=== PATIENT | male | born 1970 | race Caucasian/White ===

== ENCOUNTER 2016-02-07 20:28 | Inpatient (IN) | payer OTHER ==
[2016-02-07] MEDS ORDERED: ALBUTEROL NEB INH ONE (20:35)
[2016-02-07] MEDS ORDERED: ROCEPHIN 1 GM/NS 50 ML IV ONE (20:35)
[2016-02-07] MEDS ORDERED: DUONEB (A & A) INH ONE (20:35)
[2016-02-07] MEDS ORDERED: SOLU-MEDROL IV ONE (20:36)
--- NOTE | 2016-02-07 20:39 | PROVIDER DOCUMENTATION ---
HPI-Respiratory General - General Chief Complaint: Shortness of Breath Stated Complaint: sob Time Seen by Provider: 02/07/16 20:34 Source: patient - History of Present Illness-Resp Nature of Presenting Problem: Pt is a 45 yom who presents to ER via EMS with CC of sob. Pt reports that he was recently discharged from [facility] and diagnosed with pneumonia. Pt is complaining of sob, post-nasal drip, and a dark green productive cough. Pt has hx of Alpha 1 antitrypsin deficiency. Quality of Pain: reports: tightness Severity in ED: reports: moderate Onset/Duration: reports: unsure Timing: reports: still present Cough Quality/Degree: reports: productive cough (dark green) Associated Symptoms: reports: cough, shortness of breath, short of breath. denies: wheezing Review of Systems - Adult - REVIEW OF SYSTEMS - ADULT Constitutional: denies: chills, fever, fatique Eyes: reports: no symptoms reported Ears, Nose, Mouth & Throat: reports: no symptoms reported Cardiovascular: reports: no symptoms reported Respiratory: reports: chronic cough, cough, excessive sputum production, shortness of breath. denies: dyspnea on exertion, hemoptysis, pleurisy, wheezing Gastrointestinal: reports: no symptoms reported Genitourinary: reports: no symptoms reported Musculoskeletal: reports: no symptoms reported Integumentary: reports: no symptoms reported Neurological: reports: no symptoms reported Psychiatric: reports: no symptoms reported Endocrine: reports: no symptoms reported Hematologic/Lymphatic: reports: no symptoms reported Allergic/Immunologic: reports: no symptoms reported All Other Systems: Reviewed and Negative Past History - Adult - PAST MEDICAL HISTORY-ADULT Review of Records: reports: Nursing Assessment Review, Medications Reviewed - IMMUNIZATION STATUS Childhood Immunizations: See Nurse Assessment Flu Vaccine: See Nurse Assessment Physical Exam-General - PHYSICAL EXAM-ADULT Initial Vital Signs Reviewed: Yes - CONSTITUTIONAL General Appearance: appears well, alert, no apparent distress - HEAD, EARS, NOSE, MOUTH & THROAT HENMT: normocephalic/atraumatic, moist mucous membranes - NECK Neck: non-tender, full range of motion, supple - RESPIRATORY Respiratory: decreased breath sounds (moderate), wheezing (bilateral moderate throughout) - CARDIOVASCULAR Cardiovascular: normal peripheral pulses, regular rate, rhythm - GASTROINTESTINAL (ABDOMEN) Abdominal Exam: normal bowel sounds, non tender, soft - LYMPHATIC Lymphatic: no adenopathy - MUSCULOSKELETAL Back Exam: no CVA tenderness, no vertebral tenderness Extremity: normal range of motion, non-tender, swelling (Lymphedema in R foot, but no pitting edema). negative: pedal edema - SKIN Integumentary: normal color, normal turgor, warm/dry - NEUROLOGIC Neurologic: grossly normal, no motor/sensory deficits - PSYCHIATRIC Psych/Mental Status: normal mood/affect, normal thought content, normal thought process, oriented x 3 Progress - PLAN OF CARE/RESULTS Progress/Plan/Lab Results: Vital Signs - 24 hr 02/07/16 02/07/16 21:02 21:32 Temperature 98.4 F Pulse Rate 124 H 118 H Respiratory 28 H 24 Rate Blood Pressure 141/79 O2 Sat by Pulse 92 L 97 Oximetry Orders Category Date Time Status CHEST-2 VIEWS [RAD] Stat Exams 02/07/16 20:35 Taken ABG [RESP] Routine Lab 02/07/16 21:15 Completed BNP [PRO B-NATRIURETIC PEPTIDE] Stat Lab 02/07/16 21:29 Received CBC WITH ELECTRONIC DIFF [HEME] Stat Lab 02/07/16 21:29 Completed CMP [COMPREHENSIVE METABOLIC PANEL] [CHEM] Stat Lab 02/07/16 21:29 Completed Albuterol 2.5MG/Ipratrop 0.5MG [Duoneb (A & A)] Med 02/07/16 20:35 Discontinued 3 ml INH NOW ONE Albuterol [Albuterol Neb] Med 02/07/16 20:35 Discontinued 5 mg INH NOW ONE CefTRIAXONE 1 GM/NS [Rocephin 1 gm/Ns] 50 ml Med 02/07/16 20:35 Discontinued IV NOW Methylprednisolone Sod Succ [Solu-Medrol] Med 02/07/16 20:36 Discontinued 125 mg IV NOW ONE Aerosol Treatments Routine Oth 02/07/16 20:35 Completed Aerosol Treatments Stat Oth 02/07/16 20:35 Completed Laboratory Tests 02/07/16 02/07/16 02/07/16 21:15 21:29 21:29 WBC 9.13 RBC 4.49 L Hgb 12.8 L Hct 40.8 L MCV 90.9 MCH 28.5 MCHC 31.4 L RDW Std Deviation 15.9 H Plt Count 202 MPV 10.3 Immature Gran % (Auto) 0.3 Neut % (Auto) 74.7 Lymph % (Auto) 9.1 L Hoke % (Auto) 15.4 H Eos % (Auto) 0.1 Baso % (Auto) 0.4 Immature Gran # (Auto) 0.03 Neut # 6.81 H Lymph # 0.83 L Hoke # 1.41 H Eos # 0.01 Baso # 0.04 Specimen Type ARTERIAL Sample Site R RADIAL pH 7.37 pCO2 59 H* pO2 84 HCO3 30.3 H Base Excess 7.0 H Oxyhemoglobin 94.6 L ABG O2 Sat (Calculated) 17.1 ABG O2 Saturation 98.9 ABG Carboxyhemoglobin 3.20 H ABG Methemoglobin 1.1 Nikita Test YES A-a O2 Difference 99.0 Total Hemoglobin 12.8 Lactate 0.50 Liter Flow 4.0 Blood Gas Modality CANNULA FiO2 % 36.0 Sodium 143 Potassium 4.1 Chloride 102 Carbon Dioxide 31 Anion Gap 10 BUN 11 Creatinine 0.6 L Estimated GFR/1.73 m2 > 60 BUN/Creatinine Ratio 18 Glucose 112 H Calculated Osmolality 285 Calcium 8.3 L Total Bilirubin 0.21 AST 13 ALT 10 Alkaline Phosphatase 48 Total Protein 6.0 L Albumin 3.3 L Globulin 2.7 Albumin/Globulin Ratio 1.2 - REASSESSMENT Reassessment #1 Time Reassessed: 21:56 Status: improving (Pt reports feeling a little better, but not completely back to baseline. Pt was still tachycardic and had accesory lung muscle use, but has normal lung sounds. Dr. Chavarria discussed decision to admit pt, and pt is aware and okay with Dr. Chavarria's decision.) - EKG 1 Time of EKG reading by physician:: 21:04 EKG Read and Signed by:: Shade Chavarria EKG Interpretation (*Must complete 3 of following elements*): Abnormal (R superior axis deviation; Possible R ventricular hypertrophy per Dr. Chavarria) Rate: 123 Rhythm: Sinus tachycardia - XRAY 1 XRAY: Bilateral XRAY Study: Chest Impression: See EMR Report XRAY Interpretation: Diffuse pulmonary fibrosis, no obvious infiltrates per Dr. Chavarria - CONSULTS/PCP/HOSPITALIST Notification #1 *Consult/PCP/Hospitalist*: Dr. Larson Time Discussed: 22:38 Consult Disposition: Will see in ED, Admit Departure - Departure Time of Disposition Order: 22:37 DIAGNOSIS: COPD exacerbation, [id number] deficiency Disposition: ADMITTED INPATIENT 09 Certified Medical Emergency: Emergent Condition: Stable Attestation - Scribe Verification/Attestation Scribe:: Landon Ellison Acting as Scribe for:: Shade Chavarria Scribe documention review:: This chart was documented by a scribe and accurately reflects the service the provider performed and the decisions made by the provider.
[2016-02-07 21:27] LABS: ALLEN TEST YES; BLOOD TYPE ARTERIAL; DRAW SITE R RADIAL; METHB 1.1 % (0.0-1.5); O2(CT) 17.1 mL/dL (15.0-23.0); PO2(98.6) 84 mmHg (60-100); SAMPLE BLOOD; SAO2 98.9 % (95.0-100.0); THB 12.8 g/dL (11.5-17.4); pH(98.6) 7.37 (7.35-7.45)
[2016-02-07 21:28] LABS: MODALITY CANNULA
[2016-02-07 21:30] LABS: PCO2(98.6) 59 mmHg (35-45)
[2016-02-07 21:38] LABS: MANUAL DIFF NEEDED? NO
[2016-02-07 21:44] LABS: BASO% 0.4 % (0.0-0.8); EOS# 0.01 X1000 (0.0-0.7); EOS% 0.1 % (0.0-10.0); HEMATOCRIT 40.8 % (42.0-52.0); HEMOGLOBIN 12.8 g/dL (14.0-18.0); IMM GRAN# 0.03 X1000 (0.0-0.04); IMM GRAN% 0.3 % (0.0-0.5); LYMPH# 0.83 X1000 (1.2-3.4); LYMPH% 9.1 % (20.5-51.1); MCH 28.5 PG (27-31); MCHC 31.4 g/dL (33-37); MCV 90.9 FL (81-99); MONO# 1.41 X1000 (0.11-0.59); MONO% 15.4 % (1.7-9.3); MPV 10.3 FL (7.4-10.4); NEUT% 74.7 % (42.2-75.2); PLT 202 X1000 (130-400); RBC 4.49 XMIL (4.7-6.1)
[2016-02-07 22:15] LABS: AGAP 10; ALBUMIN 3.3 g/dL (3.5-5.0); ALKALINE PHOSPHATASE 48 U/L (32-122); BUN 11 mg/dL (8-22); CALCIUM 8.3 mg/dL (8.8-10.2); CHLORIDE 102 mmol/L (98-107); COSMO 285; GOT 13 U/L (10-34); GPT 10 U/L (10-44); POTASSIUM 4.1 mmol/L (3.5-5.1); SODIUM 143 mmol/L (136-145); TCO2 31 mmol/L (25-35); TOTAL BILIRUBIN 0.21 mg/dL (0.20-1.00)
[2016-02-07] MEDS ORDERED: ALBUTEROL NEB INH PRN (23:27)
[2016-02-07] MEDS ORDERED: ZOFRAN IV PRN (23:28)
[2016-02-07] MEDS ORDERED: TYLENOL PO PRN (23:28)
[2016-02-07] MEDS ORDERED: NS 1,000 ML IV SCH (23:30)
[2016-02-07] MEDS ORDERED: LOVENOX SUBQ SCH (23:30)
[2016-02-08] MEDS ORDERED: ZOFRAN IV PRN (00:59)
[2016-02-08] MEDS ORDERED: NS 1,000 ML IV SCH (01:00)
[2016-02-08] MEDS: ALBUTEROL NEB INH PRN ×3 (02:30→12:01)
[2016-02-08] MEDS ORDERED: PNEUMOVAX 23 IM ONE (04:00)
[2016-02-08 06:09] LABS: BE 6.1 mmoll (-3.0-3.0); BLOOD TYPE ARTERIAL; DRAW SITE R RADIAL; METHB 1.2 % (0.0-1.5); O2(CT) 17.2 mL/dL (15.0-23.0); PO2(98.6) 59 mmHg (60-100); SAMPLE BLOOD; SAO2 91.9 % (95.0-100.0); THB 13.9 g/dL (11.5-17.4); pH(98.6) 7.33 (7.35-7.45)
[2016-02-08 06:14] LABS: MODALITY CANNULA; PCO2(98.6) 65 mmHg (35-45)
[2016-02-08 06:15] LABS: ALLEN TEST YES
[2016-02-08] MEDS: LOVENOX SUBQ SCH (06:31)
--- NOTE | 2016-02-08 07:24 | HISTORY AND PHYSICAL ---
CHIEF COMPLAINT: Shortness of breath. HISTORY OF PRESENT ILLNESS: A 45-year-old white male with alpha 1 antitrypsin deficiency that was just discharged from [facility] with pneumonia and sent home on Levaquin by mouth. He presented to the ER with complaints of shortness of breath, postnasal drip and nonproductive cough with greenish sputum. The patient is also a poor historian has been evaluated by Dr Ericka KENNEDY. Chest x-ray seems to show chronic fibrotic scar tissue compatible with alpha 1 antitrypsin or severe COPD. In any case, he was noted to be desaturating. He was treated aggressively with breathing treatments, IV antibiotics and steroids. Now, his condition seems to be improved greatly. He is on oxygen by nasal cannula. Denies any distress or complaints. As I said again, the patient is a poor historian. He reports he might have impaired cognitive cognition. REVIEW OF SYSTEMS: Denies fevers. Denies chills. Denies fatigue. No coryza, positive for rhinorrhea. Positive for sore throat. No chest pain. No worsening distal edema. No palpitations. No tachycardia. No syncope. Positive for chronic cough. Positive for sputum production and shortness of breath. No hemoptysis. No pleurisy. No wheezing.Gastrointestinal: No nausea, vomiting, or diarrhea. Genitourinary: No hesitancy. No frequency. Musculoskeletal: No back pain. No joint pain. Integumentary: He has right foot and leg distal edema and varicosities that seem to be chronic. He says it causes no pain. Neurologic: Awake, alert and oriented x3. Endocrine: No diabetes. No skin thickening or discoloration. No cold intolerance. Hematologic and Lymphatic: He has isolated right lower extremity vascular insufficiency and edema, large and chronic Allergic/Immunologic: No new allergies or reactions to anything though however admits to recurrent infections. Other systems reviewed and negative. PAST MEDICAL HISTORY: Significant for alpha 1 antitrypsin deficiency. FAMILY HISTORY: Hypertension. SOCIAL HISTORY: No alcohol. No tobacco. No drugs. PAST SURGICAL HISTORY: He does have a port on the left side. PHYSICAL EXAMINATION: GENERAL: A chronically ill white male adult in no distress. VITAL SIGNS: Temperature is 98.4 degrees, pulse 118, respiratory rate 28, blood pressure 141/79, saturating 92% on oxygen by nasal cannula. HEENT: Head is atraumatic, normocephalic. Pupils reactive to light. Nose and throat clear. NECK: Supple. No JVD. LUNGS: Poor air movement. Scattered rhonchi. Prolonged expiratory phase. Tachypnea. HEART: S1-S2 present. Regular rate and rhythm. Tachycardic. ABDOMEN: Soft, nontender and nondistended. EXTREMITIES: No edema. No calf tenderness. NEUROLOGIC: Awake, alert and oriented x3. Cranial nerves 2-12 intact. Clear speech. Muscle strength 5/5 in 4 limbs. EXTREMITIES: Right leg edema and varicosities. PSYCHIATRIC: Proper. LABORATORY: White blood cell count 9.13 with a hemoglobin 12.8, hematocrit 40.8 , platelets of 202,000. Sodium 143, potassium 4.1, chloride 102, carbon dioxide 31, anion gap 10, BUN 11, creatinine 0.6. Glucose 112, calcium 8.3, total bilirubin 0.21. AST 13. ALT 10, alkaline phosphatase 48, total protein 6. Albumin 3.3, globulin 2.7, albumin globulin ratio of 1.2. IMPRESSION AND PLAN: 1. Acute exacerbation of COPD versus persisting pneumonia. 2. Alpha 1 antitrypsin deficiency with hypoxemia. 3. Mild respiratory distress on admit. DISCUSSION: The patient with poor pulmonary status and recent diagnosis of the pneumonia and discharge home on Levaquin, per report, has not finished yet Levaquin course. He is now in ER and was initially found with respiratory distress though mild. Hypoxemia was very symptomatic and very aggressively has responded to treatment. For now, we will admit to inpatient. We will continue with high-dose IV steroids, broad-spectrum IV antibiotics, breathing treatments over the our and as needed. Telemetry, serial exams and serial neuro checks. Consult to pulmonology oncology navigator. Patient might be transferred to [facility] secondary to bed availability. Heparin for DVT prophylaxis and rest of plan of care as per clinical development. [facility]
[2016-02-08] MEDS ORDERED: SOLU-MEDROL IV SCH (08:00)
[2016-02-08] MEDS: SPIRIVA INH SCH (08:54)
[2016-02-08] MEDS: SYMBICORT 160/4.5 MICROGM INHALER INH SCH ×2 (08:55→19:35)
[2016-02-08] MEDS ORDERED: LEVAQUIN PO SCH (09:00)
[2016-02-08] MEDS ORDERED: SINGULAIR PO SCH (09:00)
[2016-02-08] MEDS ORDERED: LASIX PO SCH (09:00)
[2016-02-08] MEDS ORDERED: DESYREL PO SCH (09:00)
[2016-02-08] MEDS: SINGULAIR PO SCH (09:32)
[2016-02-08] MEDS: LASIX PO SCH (09:33)
[2016-02-08] MEDS: LEVAQUIN PO SCH (09:33)
[2016-02-08] MEDS: FLONASE NAS SCH ×2 (09:34→22:29)
--- NOTE | 2016-02-08 09:39 | Diag Imaging Result Document ---
PROCEDURE NAME: CHEST-2 VIEWS - 02/07/2016 2 VIEWS OF THE CHEST: FINDINGS: There is prominence of the pulmonary vascularity. There is a Port-A-Cath on the left. The heart size is not enlarged. There is generally increased interstitial markings. IMPRESSION: Possible interstitial pulmonary edema. Advise comparison with previous studies if available.
[2016-02-08] MEDS: COENZYME Q10 PO SCH (09:59)
--- NOTE | 2016-02-08 10:05 | EKG Report ---
Test Performed on : 02/07/2016 9:04:41 PM Test Reason : ED. NOt ordered in [place] Blood Pressure : / mmHG Vent. Rate : 123 BPM Atrial Rate : 123 BPM P-R Int : 134 ms QRS Dur : 082 ms QT Int : 318 ms P-R-T Axes : 076 266 063 degrees QTc Int : 455 ms Sinus tachycardia. Right superior axis deviation Possible Right ventricular hypertrophy Abnormal ECG No previous ECGs available Unconfirmed Result
--- NOTE | 2016-02-08 10:35 | EKG Report ---
Test Performed on : 02/08/2016 10:12:12 AM Test Reason : Blood Pressure : / mmHG Vent. Rate : 115 BPM Atrial Rate : 115 BPM P-R Int : 128 ms QRS Dur : 080 ms QT Int : 336 ms P-R-T Axes : 071 264 069 degrees QTc Int : 464 ms Sinus tachycardia. Right superior axis deviation Inferior infarct , age undetermined T wave abnormality, consider anterior ischemia Abnormal ECG When compared with ECG of 07-FEB-2016 21:04, (Unconfirmed) T wave inversion now evident in Anterior leads Unconfirmed Result
[2016-02-08] MEDS: DUONEB (A & A) INH SCH ×3 (15:10→22:55)
[2016-02-08] MEDS ORDERED: LASIX IV ONE (16:03)
[2016-02-08] MEDS: SOLU-MEDROL IV SCH (16:25)
--- NOTE | 2016-02-08 17:04 | PROGRESS NOTE ---
DATE: 02/08/2016 SUBJECTIVE: Patient has no focal complaints. He is minimalist as far as sharing any major complaints. OBJECTIVE: Vital signs: Blood pressure 131/79, heart rate of 118, respiratory rate 20, temperature 97.6 degrees, 91% on 2 L. Cardiovascular: Regular rate and rhythm. Pulmonary: Bilateral breath sounds. Diminished at bases. Positive end-expiratory wheezes. GI: Soft, nontender, nondistended. Bowel sounds are positive. LAB: No new lab data today except for blood gas pH 7.33, pCO2 65, PaO2 59. PROBLEM LIST: 1. Chronic obstructive pulmonary disease exacerbation in the setting of alpha 1 antitrypsin deficiency. We will continue breathing treatments. Somehow he is only on albuterol probably do duo nebs on him, also to aid with secretions. Continue steroids. He is on antibiotics. Pulmonary has evaluated the patient are following. Plan to repeat his x-ray tomorrow. 2. Pulmonary edema. We will give him a little bit of diuresis. BNP is really only milled minimally elevated. I do not think this is an acute cardiac process. We will continue to monitor. 3. Acute respiratory failure with hypoxemia. Secondary to above issues we will wean O2 as tolerated.
--- NOTE | 2016-02-08 21:08 | CONSULTATION ---
DATE OF CONSULTATION: 02/08/2016 ATTENDING PHYSICIAN: Favian Jorgensen MD REASON FOR CONSULTATION: Chronic obstructive pulmonary disease exacerbation or emphysema, undecided. CHIEF COMPLAINT: Mr. Tucker is a 45-year-old male with history of alpha 1 antitrypsin deficiency who was came to the emergency room with history of worsening shortness of breath , cough and associated with greenish sputum. Patient was apparently treated for pneumonia and discharged from [facility] a few days ago. He was on Levaquin. However , patient respiratory status worsened and he came to the emergency room. Chest x-ray showed some fibrotic changes and emphysematous changes. Due to significant respiratory distress, patient was admitted for acute exacerbation of COPD. Unable to obtain an extensive history since patient is a poor historian, possible secondary to cognitive impairment. REVIEW OF SYSTEMS: General: Negative for fever or chills. GI: No nausea, no vomiting. : No urinary complaints. MEDICAL INSURANCE CLAIMS SPECIALIST: No confusion. PAST MEDICAL HISTORY: Alpha 1 antitrypsin. FAMILY HISTORY: Hypertension. SOCIAL HISTORY: Denies any alcohol tobacco or drug use. SURGICAL HISTORY: Has a port on the left side. PRIMARY STONEWORKING SANDER: Tomas oFx MD Patient was diagnosed with alpha 1 antitrypsin deficiency a few months ago. He is currently not on any Prolastin . PHYSICAL EXAMINATION: General: White male in mild respiratory distress. Vitals: Temperature is 98.4 degrees, pulse rate 115, oxygen saturation 92-94% on oxygen. Head and neck: Normocephalic, atraumatic. Lungs: Decreased air entry bilaterally with rhonchi. Abdomen: Soft. Extremities: No edema. MEDICAL INSURANCE CLAIMS SPECIALIST: No confusion. LABORATORY: White count 9.13, hemoglobin 12.8, hematocrit 48, platelets 202, 000. Sodium 143, potassium 4.1, chloride 102, CO2 31, anion gap is 10. BUN 11, Creatinine 0.6. IMAGING: Chest x-ray was performed yesterday which showed interstitial edema and some chronic fibrotic changes. ASSESSMENT AND PLAN: 1. Acute chronic obstructive pulmonary disease exacerbation. 2. History of acute chronic obstructive pulmonary disease exacerbation. 3. Alpha 1 antitrypsin deficiency. 4. Hypoxic respiratory failure. PLAN: 1. Continue current dose of steroids along with antibiotics and nebulization treatments. Recommend sputum cultures and blood cultures if patient becomes febrile. 2. Hypoxic respiratory failure, acute, secondary to chronic obstructive pulmonary disease exacerbation. Continue oxygen to keep saturation above 88-90%. Wean off as tolerated. [facility]
[2016-02-08] MEDS: DESYREL PO SCH (22:29)
[2016-02-08] MEDS: ROCEPHIN 1 GM/NS 50 ML IV SCH (22:30)
[2016-02-09] MEDS: SOLU-MEDROL IV SCH (02:27)
[2016-02-09] MEDS: DUONEB (A & A) INH SCH ×6 (03:33→22:53)
[2016-02-09] MEDS: LOVENOX SUBQ SCH (05:27)
[2016-02-09 06:40] LABS: HEMATOCRIT 43.9 % (42.0-52.0); HEMOGLOBIN 13.5 g/dL (14.0-18.0); MCH 27.7 PG (27-31); MCHC 30.8 g/dL (33-37); MPV 10.2 FL (7.4-10.4); RBC 4.88 XMIL (4.7-6.1)
[2016-02-09 06:58] LABS: AGAP 9; BUN 16 mg/dL (8-22); CALCIUM 8.8 mg/dL (8.8-10.2); CHLORIDE 100 mmol/L (98-107); COSMO 288; POTASSIUM 4.1 mmol/L (3.5-5.1); SODIUM 142 mmol/L (136-145); TCO2 34 mmol/L (25-35)
[2016-02-09] MEDS: SYMBICORT 160/4.5 MICROGM INHALER INH SCH ×2 (07:55→18:14)
--- NOTE | 2016-02-09 08:34 | Diag Imaging Result Document ---
PROCEDURE NAME: CHEST-2 VIEWS - 02/09/2016 CHEST 2 VIEWS: Compared with 02/07/2016. FINDINGS: Heart size is normal. There are bilateral interstitial opacities which appear grossly stable. There is no segmental dense consolidation, pleural effusion, or pneumothorax identified. Central venous catheter remains in place. IMPRESSION: Bilateral interstitial opacities similar to previous exam. Considerations include infectious interstitial pneumonitis, other atypical inflammatory process, interstitial edema, and scarring. Correlation with clinical evaluation is recommended.
[2016-02-09] MEDS: FLONASE NAS SCH ×2 (10:25→20:35)
[2016-02-09] MEDS: LASIX PO SCH (10:25)
[2016-02-09] MEDS: LEVAQUIN PO SCH (10:25)
[2016-02-09] MEDS: SINGULAIR PO SCH (10:26)
[2016-02-09] MEDS: COENZYME Q10 PO SCH ×2 (10:26→12:23)
--- NOTE | 2016-02-09 14:02 | PROGRESS NOTE ---
DATE: 02/09/2016 SUBJECTIVE: The patient has no focal complaints. He denies any chest pain or palpitations. OBJECTIVE: Vital Signs: Blood pressure is 106/74 with a heart rate of 94, respirations are 18, temperature is 97.5 degrees oral with room air saturations of 91%. Oxygen saturation of 96-97% on 4 L nasal cannula. Cardiovascular: Regular rate and rhythm. S1 and S2 appreciated. Pulmonary: He does have some wheezes scattered throughout with no increased work of breathing noted. Gastrointestinal: Abdomen is soft, nontender, and nondistended with bowel sounds in all 4 quadrants. Back: No CVAT. No spine tenderness. Extremities: No clubbing, cyanosis, or edema. Calves are nontender. Pulses are palpable x4. LABORATORY: WBC is 9.11 with hemoglobin 13.95, hematocrit 43.9, and platelets of 249,000. Sodium is 142, potassium 4.1, BUN 16, creatinine 0.6 with a glucose of 161. Chest x-ray revealed bilateral interstitial opacities similar to previous exam. Considerations include infectious interstitial pneumonitis. Other atypical inflammatory process, interstitial edema and scarring. PROBLEM LIST: 1. Chronic obstructive pulmonary disease, acute exacerbation in the set of setting up alpha 1 antitrypsin deficiency. We will continue breathing treatments. We will continue his steroids and antibiotics. Pulmonary is following with the patient. 2. Pulmonary edema. We will continue to watch I O and diurese as appropriate. 3. Acute respiratory failure with hypoxemia secondary to above issues. We will wean O2 as tolerated. Sputum cultures and blood cultures are pending. Dictated by ISABEL Dc for Favian Jorgensen MD
[2016-02-09] MEDS: SPIRIVA INH SCH (15:20)
[2016-02-09] MEDS: DESYREL PO SCH (20:35)
[2016-02-09] MEDS: ROCEPHIN 1 GM/NS 50 ML IV SCH (22:39)
--- NOTE | 2016-02-10 00:14 | PROGRESS NOTE ---
DATE: 02/09/2016 SUBJECTIVE: The patient seen and examined this afternoon. No acute events overnight. Continues to have significant cough with yellowish-green sputum production, moderate amounts of wheezing, and has unchanged. Afebrile overnight. OBJECTIVE: vital signs: Blood pressure 106/74, heart rate 94, respiratory rate is 18, temperature 97, oxygen saturation 92% on room air and 95% on 4 L. General: In mild respiratory distress. Lungs: Scattered wheezing noted. Decreased air entry. Abdomen: Soft. Extremities: No edema. Cardiovascular: Regular rate and rhythm. ELECTRICIAN HELPER: No confusion. LABS: White count 9.1, hemoglobin 13.7, platelets 249,000. Sodium 142, potassium 4.1, BUN is 16, creatinine 0.6. Chest x-ray revealed bilateral interstitial opacities. ASSESSMENT AND PLAN: 1. COPD with exacerbation. 2. Pulmonary edema. 3. Hypoxic respiratory failure. 4. Antitrypsin deficiency. PLAN: Patient still has significant respiratory distress. Continue current dose of steroids along with antibiotics. Follow up sputum cultures for further management. Recommend continuing bronchodilators every 4 and every 2 hours as needed. We will also agree with the primary care team with diuresis for possible pulmonary edema. Hypoxic respiratory failure. Continue oxygen to keep saturation above 88 to 90%, and we will continue to follow.
[2016-02-10] MEDS ORDERED: CARDIZEM PO ONE (01:12)
[2016-02-10] MEDS: DUONEB (A & A) INH SCH (01:15)
[2016-02-10] MEDS: TYLENOL PO PRN ×2 (01:27→08:43)
[2016-02-10 02:28] LABS: AGAP 6; BUN 17 mg/dL (8-22); CALCIUM 8.6 mg/dL (8.8-10.2); CHLORIDE 99 mmol/L (98-107); COSMO 283; MAGNESIUM 1.7 mg/dL (1.5-2.7); SODIUM 141 mmol/L (136-145); TCO2 36 mmol/L (25-35)
[2016-02-10] MEDS: CARDIZEM PO SCH ×4 (03:04→19:36)
[2016-02-10 03:22] LABS: POTASSIUM 3.9 mmol/L (3.5-5.1)
[2016-02-10] MEDS ORDERED: XOPENEX NEB ONE (03:34)
[2016-02-10] MEDS ORDERED: XOPENEX NEB INH SCH (04:00)
[2016-02-10] MEDS: LOVENOX SUBQ SCH (05:18)
--- NOTE | 2016-02-10 06:03 | EKG Report ---
Test Performed on : 02/10/2016 01:12:46 AM Test Reason : EKG changes Blood Pressure : / mmHG Vent. Rate : 145 BPM Atrial Rate : 145 BPM P-R Int : 132 ms QRS Dur : 072 ms QT Int : 272 ms P-R-T Axes : 076 264 071 degrees QTc Int : 422 ms Sinus tachycardia. Possible Left atrial enlargement Right superior axis deviation Pulmonary disease pattern Right ventricular hypertrophy Abnormal ECG When compared with ECG of 07-FEB-2016 21:04, No significant change was found Unconfirmed Result
[2016-02-10] MEDS: SYMBICORT 160/4.5 MICROGM INHALER INH SCH ×2 (08:04→21:59)
[2016-02-10] MEDS: SPIRIVA INH SCH (08:04)
[2016-02-10] MEDS: LEVAQUIN PO SCH (08:31)
[2016-02-10] MEDS: SINGULAIR PO SCH (08:31)
[2016-02-10] MEDS: LASIX PO SCH (08:31)
[2016-02-10] MEDS: COENZYME Q10 PO SCH (08:31)
[2016-02-10] MEDS: FLONASE NAS SCH ×2 (08:45→21:19)
[2016-02-10] MEDS ORDERED: SOLU-MEDROL IV SCH (10:00)
[2016-02-10] MEDS: XOPENEX NEB INH SCH ×3 (10:23→22:00)
[2016-02-10] MEDS: SOLU-MEDROL IV SCH ×2 (10:38→21:19)
--- NOTE | 2016-02-10 20:37 | PROGRESS NOTE ---
DATE: 02/10/2016 SUBJECTIVE: Patient seen and examined on 02/10/2016. No acute events overnight. The patient's shortness of breath has slightly improved. LABS: White count is 9.13, hemoglobin 12.8, hematocrit 440.8, platelet count is 202,000. Chemistry: Sodium 141, potassium 3.9, chloride 99, bicarbonate 36, BUN 17, creatinine 0.7. No new blood gases. No microbiology. Sputum cultures showed sparse growth. MEDICATIONS: Patient is currently on Symbicort, Rocephin, Coenzyme-Q, Cardizem, Lovenox, Flonase, Lasix 20 mg, Xopenex, Levaquin, methylprednisone 40 q.12, Singulair 10 mg, Spiriva. IMAGING STUDIES: Chest x-rays: No new x-rays noted. ASSESSMENT AND PLAN: 1. Bilateral pneumonia. 2. Chronic obstructive pulmonary disease exacerbation. 3. Hypoxia. 4. Alpha-1 antitrypsin deficiency. PLAN: Patient has improved clinically to a certain extent. Sputum has been less purulent. Final culture results are negative for any growth. Continue nebulization treatments. Recommend out of bed to chair and incentive spirometry. DISPOSITION: In 1-2 days. FOLLOWUP: Recommend followup with his shop router as an outpatient in 1-2 weeks.
[2016-02-10] MEDS: DESYREL PO SCH (21:19)
--- NOTE | 2016-02-10 21:43 | PROGRESS NOTE ---
DATE: 02/10/2016 SUBJECTIVE: The patient states he is feeling a bit better. He is having less cough, congestion, shortness of breath. Less palpitations. Denies any chest pain. Denies any fevers or chills. Does continue to have a mildly productive sputum, continued to have some mild wheezing. PHYSICAL: Vital Signs: Temperature 98 degrees, pulse 110, respiratory rate 18, blood pressure 122/70. General: Patient well-developed, well-nourished. Currently in no real respiratory distress. He is awake, alert, oriented. HEENT: Normocephalic, atraumatic. Neck: Supple. CARDIOVASCULAR: Regular rate. Chest: Decreased breath sounds bilaterally but equal. Positive wheezing, but appears improved. Abdomen: Soft, nondistended. Extremities: Moves all extremities. Neurologic: No changes. ASSESSMENT: 1. Chronic obstructive pulmonary disease with acute exacerbation in the setting of alpha 1 antitrypsin deficiency. 2. Pulmonary edema. 3. Acute respiratory failure. PLAN: We will continue to decrease steroids. Hopefully home in the next 1-2 days.
[2016-02-10] MEDS: ROCEPHIN 1 GM/NS 50 ML IV SCH (22:07)
[2016-02-11] MEDS: CARDIZEM PO SCH ×4 (01:06→20:49)
[2016-02-11] MEDS: XOPENEX NEB INH SCH ×2 (03:49→22:30)
[2016-02-11] MEDS: LOVENOX SUBQ SCH (05:05)
[2016-02-11] MEDS: SPIRIVA INH SCH (07:42)
[2016-02-11] MEDS: SYMBICORT 160/4.5 MICROGM INHALER INH SCH ×2 (07:42→19:19)
[2016-02-11] MEDS: FLONASE NAS SCH ×2 (08:20→20:49)
[2016-02-11] MEDS: LEVAQUIN PO SCH (08:21)
[2016-02-11] MEDS: SINGULAIR PO SCH (08:21)
[2016-02-11] MEDS: LASIX PO SCH (08:22)
[2016-02-11] MEDS: SOLU-MEDROL IV SCH ×2 (08:22→20:49)
--- NOTE | 2016-02-11 09:14 | PROGRESS NOTE ---
DATE: 02/11/2016 SUBJECTIVE: Patient states that he is feeling a little bit better. Still having increased cough, increased production of his cough. Denies any chest pain, palpitations. Denies any fevers, chills. Denies any GI or issues. PHYSICAL EXAMINATION: Vital Signs: Temperature 97, pulse 102, respiratory rate 20, BP 116/72. General: Patient is well-developed, well-nourished. He is currently in mild respiratory distress. He is having some shortness of breath with activity. HEENT: Normocephalic. Neck: Supple. CV: Regular rate. Chest: Good air movement bilaterally. Positive rhonchi throughout. Occasional faint wheezing. Abdomen: Soft and nondistended. Extremities: Moves all extremities. Neurologic: No changes. LABS: Stable. ASSESSMENT: 1. Chronic obstructive pulmonary disease with acute exacerbation. 2. Alpha 1 antitrypsin deficiency. 3. Pulmonary edema, improving. 4. Acute respiratory failure with hypoxemia. PLAN: We will continue to wean his steroids. We will recheck chest x-ray today. Labs in the a.m. Hopefully home in 1-2 days. We will add chest percussion therapy to see if this will help him clear his secretions better.
--- NOTE | 2016-02-11 10:13 | Diag Imaging Result Document ---
PROCEDURE NAME: CHEST-2 VIEWS - 02/11/2016 PA AND LATERAL RADIOGRAPH OF THE CHEST: COMPARISON: 02/09/2016. FINDINGS: Left chest port is in stable position. Bilateral interstitial opacities are approximately stable as compared to the previous studies. The pulmonary vascularity is prominent like previous studies. This suggests pulmonary venous congestion and interstitial edema. There is minimal blunting of the posterior costophrenic angles on the lateral view suggesting trace effusions, most likely. This is probably stable as compared to the previous study. No new consolidations are identified. Cardiac silhouette is stable. IMPRESSION: Stable chest.
[2016-02-11] MEDS: COENZYME Q10 PO SCH (12:40)
[2016-02-11] MEDS: DESYREL PO SCH (20:48)
[2016-02-11] MEDS: ROCEPHIN 1 GM/NS 50 ML IV SCH (22:01)
[2016-02-12] MEDS: CARDIZEM PO SCH ×3 (02:01→14:30)
[2016-02-12] MEDS: LOVENOX SUBQ SCH (05:58)
[2016-02-12 06:12] LABS: HEMOGLOBIN 12.6 g/dL (14.0-18.0); MCH 27.7 PG (27-31); MCHC 30.7 g/dL (33-37); MCV 90.1 FL (81-99); MPV 10.5 FL (7.4-10.4); RBC 4.55 XMIL (4.7-6.1)
[2016-02-12] MEDS: XOPENEX NEB INH SCH (06:50)
[2016-02-12 06:57] LABS: AGAP 5; ALBUMIN 3.3 g/dL (3.5-5.0); ALKALINE PHOSPHATASE 50 U/L (32-122); BUN 17 mg/dL (8-22); CHLORIDE 93 mmol/L (98-107); COSMO 272; GOT 11 U/L (10-34); GPT 14 U/L (10-44); MAGNESIUM 2.1 mg/dL (1.5-2.7); POTASSIUM 4.5 mmol/L (3.5-5.1); SODIUM 134 mmol/L (136-145); TCO2 36 mmol/L (25-35); TOTAL PROTEIN 6.2 g/dL (6.3-8.3)
[2016-02-12] MEDS: SPIRIVA INH SCH (07:40)
[2016-02-12] MEDS: SYMBICORT 160/4.5 MICROGM INHALER INH SCH (07:41)
[2016-02-12] MEDS: SOLU-MEDROL IV SCH (08:36)
[2016-02-12] MEDS: LASIX PO SCH (08:37)
[2016-02-12] MEDS: FLONASE NAS SCH (08:37)
[2016-02-12] MEDS: SINGULAIR PO SCH (08:37)
[2016-02-12] MEDS: LEVAQUIN PO SCH (08:38)
[2016-02-12] MEDS: COENZYME Q10 PO SCH (09:18)
[2016-02-12 11:21] VITALS: BP 146/92
--- NOTE | 2016-02-12 17:57 | PROGRESS NOTE ---
DATE: 02/11/2016 SUBJECTIVE: Patient seen and examined in the afternoon of 02/11/2016. This is a late dictation. Shortness of breath has improved. He still has some thick mucus production which is decreased in quantity. No fevers. No chest pain. Not very ambulative, lies in the bed most of the time. PHYSICAL EXAMINATION: Vitals: Temperature 97 degrees, pulse 102, respiratory rate 20, blood pressure 161/70. General: Not in significant distress, very mild respiratory distress. Heart: S1-S2 heard. Lungs: Decreased air entry. Scattered rhonchi noted. Abdomen: Soft. Extremities: No edema. LABS: Reviewed. ASSESSMENT AND PLAN: 1. Chronic obstructive pulmonary disease with exacerbation. 2. Alpha 1 antitrypsin deficiency. 3. Hypoxic respiratory failure. PLAN: Patient has improved. We decrease his steroids. Final culture results have been negative so far. Recommend chest physical therapy due to significant secretions, and discharge home in 1-2 days, and follow up with primary bible worker, Dr. Tomas Fox.
[2016-02-12] MEDS ORDERED: DESYREL PO SCH (21:00)
--- NOTE | 2016-02-14 21:52 | DISCHARGE SUMMARY ---
ADMISSION DATE: 02/07/2016 DISCHARGE DATE: 02/12/2016 ADMISSION DIAGNOSES: 1. Acute chronic obstructive pulmonary disease versus persisting pneumonia. 2. Alpha 1 antitrypsin deficiency with hypoxemia. 3. Mild respiratory distress on admit. DISCHARGE DIAGNOSES: 1. An acute exacerbation of chronic obstructive pulmonary disease. 2. Alpha 1 antitrypsin deficiency. 3. Pulmonary edema improved. 4. Acute respiratory failure with hypoxemia improved. SUMMARY OF FINDINGS: This is a 45-year-old male with alpha 1 antitrypsin deficiency had been discharged from [facility] with pneumonia and sent home on Levaquin p.o., presented to the ER with complaints of shortness of breath, a productive cough of green sputum, postnasal drip. He had been a poor historian. His chest x-ray showed chronic fibrotic scar tissue compatible with his alpha 1 antitrypsin and severe COPD. He had been desaturating in the emergency room, was treated aggressively with breathing treatments, IV antibiotics and steroids. He improved greatly and was on oxygen by nasal cannula. He was admitted, placed on high-dose IV steroids, broad-spectrum IV antibiotics, breathing treatments, telemetry, neuro checks. We consulted pulmonology. He fairly slow to improve and that is most likely due to his alpha 1 antitrypsin deficiency. We decreased his steroids. His final culture results were negative and per pulmonology it was felt that he can be safely discharged. We did offer this patient home health and he refused stating that he did not need it. He is to follow up with his primary color specialist Dr. Tomas Fox. DISCHARGE MEDICATIONS: He was discharged home on. Albuterol nebs q.4 hours p.r.n., Symbicort 160/4.5 inhaler 1 puff b.i.d., Flonase 50 mcg p.o. b.i.d., Lasix 20 mg p.o. daily, Levaquin 750 mg p.o. daily #5 with no refills, Medrol Dosepak as directed, Singulair 10 mg p.o. daily, Spiriva 1 puff inhalation daily, trazodone 150 mg p.o. at bedtime, CO-Q10 400 mg p.o. daily and Cardizem 120 p.o. daily #30 with 2 refills was given due to the patient having some sinus tachycardia up in the 140s now down into the low to mid 100s. FOLLOWUP: He will follow with primary care, color specialist Dr. Tomas Fox. A 35-minute discharge. Dictated by ISABEL Dudley for Lamont Camp MD
== END 2016-02-12 15:30 | disposition home or self-care (01) | DRG 190 ==
LOC: ED 20:28 → P.MEDSURG 23:42
PROVIDERS: ATTEND Family Medicine
DX: J44.1 Chronic obstructive pulmonary disease with (acute) exacerbation (principal); J96.01 Acute respiratory failure with hypoxia; J81.1 Chronic pulmonary edema; E88.01 Alpha-1-antitrypsin deficiency; I83.891 Varicose veins of right lower extremity with other complications; Z82.49 Family history of ischemic heart disease and other diseases of the circulatory system; G31.84 Mild cognitive impairment of uncertain or unknown etiology; Z79.51 Long term (current) use of inhaled steroids; Z79.899 Other long term (current) drug therapy; Z23 Encounter for immunization
CPT/HCPCS: 71020; 80048; 80053; 82805; 83735; 83880; 85025; 85027; 87040; 87070; 87205; 89220; 90732; 93005; 94640; 94668; 94761; 94799; 96365; 96366; 96375; J0696; J1642; J1650; J1940; J2920; J2930; J7030